=== PATIENT | male | born 2000 | race Caucasian/White ===

== ENCOUNTER → 2022-01-13 11:37 | Outpatient (CLI) | payer OTHER, MEDICAID, SELFPAY ==
[2022-01-13 13:21] LABS: Urine N gonorrhoeae NOT DETECTED
[2022-01-13 13:32] LABS: Urine Chlamydia NOT DETECTED
== END ==
PROVIDERS: Visit Provider Nurse Practitioner Family
DX: Z72.51 High risk heterosexual behavior (principal)
CPT/HCPCS: 87491; 87591

== ENCOUNTER → 2022-01-13 11:39 | Outpatient (CLI) | payer OTHER, MEDICAID, SELFPAY ==
[2022-01-14 15:40] LABS: Hepatitis B Surface Antigen NEGATIVE s/c (NEGATIVE)
[2022-01-14 16:10] LABS: HIV 1 & 2 Ab/Ag 4th Gen Combo NEGATIVE (NEGATIVE); Hep C Virus Ab w/Reflex Quant NEGATIVE s/c (NEGATIVE)
[2022-01-15 01:49] LABS: HSV 2 IGG AB < 0.91 index (0.00-0.90)
[2022-01-16 08:31] LABS: RPR Screen Non Reactive (Non Reactive)
== END ==
PROVIDERS: Referring Provider Nurse Practitioner Family; Visit Provider Nurse Practitioner Family
DX: Z20.2 Contact with and (suspected) exposure to infections with a predominantly sexual mode of transmission (principal); Z72.51 High risk heterosexual behavior
CPT/HCPCS: 36415; 86592; 86694; 86695; 86696; 86803; 87340; 87389; 87491; 87591